=== PATIENT | male | born 1990 ===

== ENCOUNTER 2017-04-29 23:25 | Emergency (ER) | payer SELFPAY ==
[2017-04-29 23:53] VITALS: BP 109/68; PULSE 99; RESP 20; TEMP 98.8; O2SAT 97
--- NOTE | 2017-04-30 00:16 | C.PDOC ---
History Of Present Illness 27 year old male presents to the ER with a complaint of a congested cough associated with a mild frontal headache. Denies neck pain or fever. Time Seen by Provider: 04/29/17 23:57 Chief Complaint (Nursing): Flu-like Symptoms History Per: Patient History/Exam Limitations: no limitations Onset/Duration Of Symptoms: Days Current Symptoms Are (Timing): Still Present Location Of Pain: Headache (Mild frontal) Sick Contacts (Context): None Associated Symptoms: Cough, Other (Mild frontal headache). denies: Fever Ear Symptoms: Bilateral: None Recent travel outside of the [place]: No Past Medical History Reviewed: Historical Data, Nursing Documentation, Vital Signs Vital Signs: Last Vital Signs Temp 98.8 F 04/29/17 23:49 Pulse 99 H 04/29/17 23:49 Resp 20 04/29/17 23:49 BP 109/68 04/29/17 23:49 Pulse Ox 97 04/30/17 03:12 - Medical History PMH: Asthma Family History: States: Unknown Family Hx - Social History Hx Tobacco Use: Yes Hx Alcohol Use: No Hx Substance Use: No - Immunization History Hx Tetanus Toxoid Vaccination: Yes Hx Influenza Vaccination: No Hx Pneumococcal Vaccination: No Review Of Systems Constitutional: Negative for: Fever, Chills Eyes: Negative for: Vision Change ENT: Negative for: Throat Pain Respiratory: Positive for: Cough (Congested) Musculoskeletal: Negative for: Neck Pain Neurological: Positive for: Headache (Mild frontal) Physical Exam - Physical Exam Appears: Non-toxic, No Acute Distress Skin: Normal Color, Warm, Dry Head: Atraumatic, Normacephalic Eye(s): bilateral: Normal Inspection, PERRL Nose: Normal Oral Mucosa: Moist Throat: Normal, No Erythema, No Exudate Neck: Normal, Supple Chest: Symmetrical, No Tenderness Cardiovascular: Rhythm Regular Respiratory: Normal Breath Sounds, No Rales, No Rhonchi, No Wheezing Neurological/Psych: Oriented x3, Normal Speech ED Course And Treatment O2 Sat by Pulse Oximetry: 97 (Room air) Pulse Ox Interpretation: Normal Progress Note: Tylenol administered with relief of pain. Patient refuses any Rx medications, states he will get OTC medications, instructed him to follow up with PMD for further evaluation or return if symptoms worsen. Disposition Counseled Patient/Family Regarding: Diagnosis, Need For Followup - Disposition Referrals: [facility] [Outside] Disposition: HOME/ ROUTINE Disposition Time: 00:14 Condition: STABLE Additional Instructions: Increase PO fluids Take meds as directed Return to ER if worse Instructions: Upper Respiratory Infection (ED) Forms: [employer] (Maltese) - Clinical Impression Clinical Impression: Upper respiratory infection - PA / DIRECTOR OF TRAUMA / Resident Statement MD/DO has reviewed & agrees with the documentation as recorded. - Scribe Statement The provider has reviewed the documentation as recorded by the Scribmerline Swenson All medical record entries made by the Yaredibmerline were at my direction and personally dictated by me. I have reviewed the chart and agree that the record accurately reflects my personal performance of the history, physical exam, medical decision making, and the department course for this patient. I have also personally directed, reviewed, and agree with the discharge instructions and disposition.
== END 2017-04-30 00:25 | disposition home or self-care (01) ==
LOC: C.ER 23:25
DX: J06.9 Acute upper respiratory infection, unspecified (principal); Z87.891 Personal history of nicotine dependence